=== PATIENT | female | born 1965 ===

== ENCOUNTER → 2023-06-24 07:27 | Outpatient (REF) | payer BC, SELFPAY ==
[2023-06-24 08:43] LABS: Glycohemoglobin (HgbA1c) 6.9 % (4.0-5.6)
[2023-06-24 09:35] LABS: Free T4 0.94 ng/dl (0.78-2.19)
[2023-06-24 09:49] LABS: TSH 3.18 uIU/ml (0.47-4.68)
== END ==
LOC: REG 07:27
PROVIDERS: ATTENDING PHYSICIAN Internal Medicine
DX: E11.9 Type 2 diabetes mellitus without complications (principal); F32.A Depression, unspecified; R53.83 Other fatigue
CPT/HCPCS: 36415; 83036; 84439; 84443

== ENCOUNTER → 2023-12-27 07:59 | Outpatient (REF) | payer BC, SELFPAY ==
[2023-12-27 09:15] LABS: ALT (SGPT) 26 U/L (0-35); AST (SGOT) 24 U/L (14-36); Albumin 4.6 g/dl (3.5-5.0); Alkaline Phosphatase 61 U/L (38-126); Blood Urea Nitrogen 11 mg/dl (7-17); Calcium 9.9 mg/dl (8.4-10.2); Carbon Dioxide 26 mmol/L (22-30); Chloride 101 mmol/L (98-107); Glucose 132 mg/dl (70-99); HDL Cholesterol 58 mg/dl; LDL Cholesterol, Calculated 104 mg/dl; Sodium 140 mmol/L (135-145); Total Bilirubin 0.6 mg/dl (0.2-1.3); Total Cholesterol 182 mg/dl (50-199); Total Protein 7.2 g/dl (6.3-8.2); Triglyceride 102 mg/dl (10-149); Very Low Density Lipoprotein 20 mg/dl (0-30); eGFR > 60.00
[2023-12-27 09:51] LABS: Glycohemoglobin (HgbA1c) 7.2 % (4.0-5.6)
[2023-12-27 10:31] LABS: TSH 1.12 uIU/ml (0.47-4.68)
== END ==
LOC: REG 07:59
PROVIDERS: ATTENDING PHYSICIAN Internal Medicine
DX: E78.2 Mixed hyperlipidemia (principal); R53.83 Other fatigue
CPT/HCPCS: 36415; 80053; 80061; 82043; 82570; 83036; 84439; 84443